=== PATIENT | female | born 1980 | race Caucasian/White ===

== ENCOUNTER → 2018-01-20 13:10 | Outpatient (CLI) | payer OTHER, SELFPAY ==
--- NOTE | 2018-01-21 20:05 | ONE_ITS ---
"DATE OF SERVICE: January 20, 2018 ASSESSMENT: Right thoracic lumbar muscle strain. PLAN: 1. MMI - Complete PT. Plan of care reviewed with patient who verbalized understanding and agreement. More than 50% of this visit spent in the planning and coordination of care. CHIEF COMPLAINT: Back pain. 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 Continued improvement noted. States that she is 80-90% preinjury status and is ready to be released to full duty. When discomfort develops it is relieved with stretching. Lizzy has one remaining PT appointment scheduled for next week. Voiced understanding of the importance of continuing her home exercise regimen throughout the lifespan. REVIEW OF SYSTEMS: Denies chest pain or palpitations. Denies shortness of breath or dyspnea. Denies headache or visual problems. Denies GI or complaints. PAST MEDICAL HISTORY: Depression. Obesity class 1 Asthma Headache Migraines Cholecystectomy 03/2017 Right wrist sprain, 07/2017 Back injury, 2007 MEDICATIONS: Sertraline 100 mg q.d. OTC Aleve. ALLERGIES: Amoxicillin - rash Latex - rash Penicillin - rash Shrimp - throat swelling SOCIAL: ETOH - none Tobacco - none Illegal drug use - none Exercise with employment. with child (SYLVAIN). Education - college for two years. OBJECTIVE GENERAL - 37-year-old white female. Alert, oriented x3, smiling. Gait remains nonantalgic. THORACIC/LUMBAR SPINE - Straight, rounded posture. No spinal or paraspinal musculature tenderness. Range of motion within normal limits."
== END ==
PROVIDERS: PCP Emergency Medicine; Visit Provider Nurse Practitioner Family
DX: M54.6 Pain in thoracic spine (principal); M62.830 Muscle spasm of back; S39.012D Strain of muscle, fascia and tendon of lower back, subsequent encounter
CPT/HCPCS: 99214

== ENCOUNTER 2019-11-24 02:57 | Outpatient (CLI) | payer OTHER, SELFPAY ==
[2019-11-24 11:04] LABS: ALT 29 U/L (14-59); AST 17 U/L (15-37); Albumin 3.8 g/dL (3.4-5.0); Alkaline Phosphatase 93 U/L (46-116); Anion Gap 7.8 mmol/L (3-11); BUN 8 mg/dL (7-18); Bilirubin, Total 0.4 mg/dL (0.2-1.0); CO2 28.2 mmol/L (21.0-32.0); CREATININE 0.85 mg/dL (0.55-1.02); Calcium 8.9 mg/dL (8.5-10.1); Calculated LDL 121 mg/dL (<100); Chloride 104 mmol/L (98-107); Cholesterol 180 mg/dL (<200); Glucose 94 mg/dL (74-106); HDL Cholesterol 39 mg/dL (40-60); Potassium 4.2 mmol/L (3.5-5.1); Sodium 140 mmol/L (136-145); TSH (W/Ref FT4) 2.54 uIU/mL (0.36-3.74); Total Protein 6.6 g/dL (6.4-8.2); Triglyceride 101 mg/dL (<150)
== END 2019-11-24 03:17 ==
PROVIDERS: PCP Emergency Medicine
DX: I10 Essential (primary) hypertension (principal); R00.2 Palpitations; R63.8 Other symptoms and signs concerning food and fluid intake; Z00.00 Encounter for general adult medical examination without abnormal findings; Z13.220 Encounter for screening for lipoid disorders; E03.9 Hypothyroidism, unspecified
CPT/HCPCS: 36415; 80053; 80061; 84443

== ENCOUNTER 2019-12-26 09:24 | Outpatient (CLI) | payer OTHER, SELFPAY ==
[2019-12-28 03:06] LABS: COVID-19 RT-PCR Result NEGATIVE (Negative)
== END 2019-12-26 09:44 ==
PROVIDERS: Physical Therapy Assistant; PCP Emergency Medicine; Visit Provider Surgery
DX: Z01.818 Encounter for other preprocedural examination (principal)
CPT/HCPCS: U0003

== ENCOUNTER 2019-12-29 08:09 | Day surgery (SDC) | payer OTHER, SELFPAY ==
[2019-12-29 08:22] VITALS: BP 143/90; PULSE 81; RESP 18; TEMP 36.3; O2SAT 97
[2019-12-29] MEDS: Lactated Ringers 1,000 ML 80 ML IV (08:45)
--- NOTE | 2019-12-29 09:09 | W.PM.ENDDOP ---
Date of service: 12/29/19 Time of Service: 09:09 Endoscopy Report DATE OF PROCEDURE: 12/29/19 PRE-OP DIAGNOSIS: dysphagia and epigastric pain POST-OP DIAGNOSIS: same (bile reflux gastritis ) PROCEDURE: EGD and bx SURGEON: Josefa Lazaro ANESTHESIA: MAC ESTIMATED BLOOD LOSS: 1 PATHOLOGY: other COMPLICATIONS: None DISPOSITION: same day PROCEDURE DESCRIPTION: After informed consent was obtained the patient was take to the procedure room and placed in a supine position. Monitors were applied and a time out was done. The patients name, date of , procedure type, allergies to medications and metal in their body was reviewed. A bite block was placed and the patient was sedated. Once sedated and comfortable the gastroscope was advanced through the oropharynx which was grossly normal into the esophagus. The proximal and mid-esophagus were nl. In the distal esophagus there was nl. There is no esophageal diverticulum varices esophagitis or masses. The scope was advanced into the stomach and through the pylorus into the 3rd portion of the duodenum. The duodenum was noted to be nl. Biopsies were done. All specimens are retrieved and no bleeding is noted the scope was retracted back into the stomach and biopsies were done to rule out H. pylori. There were no ulcers. There are no masses or polyps in the stomach. There is some mild gastritis especially along the greater curve than a striped fashion. She has definite bile reflux through the pylorus. The scope was retroflexed. The cardia and fundus were noted to be normal. There no a hiatal hernia noted. The scope was retracted back into the esophagus and biopsies were done of the GE junction to rule out White's. The Z line was regular. The GE junction was nl. The scope was removed and the patient was woken up and taken back to [facility] in stable condition.
--- NOTE | 2019-12-29 09:30 | STOM_PTH ---
PATIENT: Lizzy Sneed LOC: [facility] U#:[id number] AGE/SX: 39/F ROOM: RE12/29/[address]: Josefa Lazaro : 1980 BED: DIS: 12/29/2019 SPEC #: [id number] RECD: 12/29/19 12:47 STATUS: BUBBA REQ #: [id number] BEBO: 12/29/19 09:[address]: Josefa Lazaro DEPT: Surgical Specimen RECD BY: Erika Arthur ENTERED: 12/29/19 12:50 SP TYPE: STOMACH OTHR DR: Hussein Deluna DO Tissues: 1 - BIOPSY BOWEL 2 - STOMACH BIOPSY 3 - STOMACH BIOPSY 4 - ESOPHAGUS BIOPSY 5 - ESOPHAGUS BIOPSY Procedures: GROSS AND MICRO LEVEL 4 IMMUNOPEROXIDASE STAIN Comments: [id number]
--- NOTE | 2019-12-29 09:53 | W.PM.DSUDISC ---
Discharge Plan Disposition Patient Disposition: HOME Condition: Good Discharge Details Reason For Visit: EGD Attending Provider: Josefa Lazaro Primary Care Provider: Hussein Deluna Home Meds and New Rx's Prescriptions: New sucralfate [Carafate] 1 gram tablet 1 gm PO BID Qty: 60 RF: 12 Continued sertraline 25 mg tablet 25 mg PO DAILY Qty: 60 RF: 1 naproxen sodium [Aleve] 220 MG capsule 220 mg PO PRN RF: 0 sertraline [Zoloft] 100 mg tablet 100 mg PO DAILY Qty: 90 RF: 4 Discontinued omeprazole 40 mg capsule,delayed release(DR/EC) 40 mg PO DAILY Qty: 90 RF: 1 Discharge Instructions Additional Instructions: Findings:bile reflux gastritis stop omeprazol and start carafate gargle w/ salt water if have sore throat. Follow up:in 3-4 wks Please call if you develop: fevers >101.5 Nausea or Vomiting Abdominal pain that is not transient DAY SURGERY UNIT POST COLONOSCOPY INSTRUCTIONS 1. Because there will be medication in your system for the next 24 hours, you may feel a little sleepy. Your coordination will be affected. Therefore: a. Do not drive or operate dangerous equipment for 24 hours. b. Do not drink alcohol beverages for 24 hours (not even beer). c. Plan to go home and rest for the day. 2. Generally there are no restrictions on your activity after a day or so has gone by, but you may feel a bit fatigued for a few days. 3 After you arrive home you may have a light meal and return to a normal diet as you can tolerate it without feeling sick to your stomach. 4. After surgery, you may feel pain or discomfort. This should be only transient, but if it persists please contact your doctor. 5. If there are any questions regarding the findings of your procedure, please feel free to contact your doctor. 6. If you are unable to contact your doctor with a problem, contact the hospital at [phone]. 7. Continue all your regular medications unless directed otherwise. I understand the above instructions and have no questions. Signature of Patient or Responsible Adult Escort Date/Time Name of Responsible Adult Escort Signature of Nurse Date/Time Activity:: no lifting over 24hrs or strenuous activity x 24 hrs Diet:: small lt meals x24hrs. May have sore throat x 24hrs. Garle w/ salt water as needed for sore throat DS: Diagnosis Discharge Diagnosis (1) Gastroesophageal reflux disease: Status: Chronic (2) Bile reflux gastritis: Status: Acute
[2019-12-29 10:12] VITALS: BP 119/79; PULSE 71; RESP 17; TEMP 36.1; O2SAT 97
== END 2019-12-29 10:25 | disposition home or self-care (01) ==
PROVIDERS: PCP Emergency Medicine; Visit Provider Surgery
PROC: 0DJ68ZZ Inspection of Stomach, Via Natural or Artificial Opening Endoscopic (ICD-10-PCS; CPT 43235; principal; 2019-12-29 09:15)
DX: R13.10 Dysphagia, unspecified (principal); R10.13 Epigastric pain; K29.60 Other gastritis without bleeding; K21.9 Gastro-esophageal reflux disease without esophagitis
CPT/HCPCS: 43239; 81025; 88305; 88361

== ENCOUNTER 2020-09-27 10:13 | Outpatient (REF) | payer SELFPAY ==
--- NOTE | 2020-09-27 10:00 | PAPFT_PTH ---
PATIENT: Lizzy Sneed LOC: [facility] U#:[id number] AGE/SX: 40/F ROOM: RE09/27/[address]: HECTOR Schmitz : 1980 BED: DIS: 09/27/2020 SPEC #: [id number] RECD: 09/27/20 12:53 STATUS: BUBBA REQ #: [id number] BEBO: 09/27/20 10:[address]: Shyanne Bran DEPT: [facility] Cytology RECD BY: Erika Arthur ENTERED: 09/27/20 12:53 SP TYPE: PAPFT OTHR DR: Audra Kay APRN Tissues: 1 - CX/ENDOCX FOR PAP SMEARS Procedures: PAP THIN PREP/UVM Screening HPV DNA PROBE Comments: [id number]
== END 2020-09-27 10:14 | disposition home or self-care (01) ==
LOC: LBN 10:13
PROVIDERS: Visit Provider Nurse Practitioner Family
DX: Z12.4 Encounter for screening for malignant neoplasm of cervix (principal); Z11.51 Encounter for screening for human papillomavirus (HPV)
CPT/HCPCS: 88142; 87624

== ENCOUNTER 2021-01-08 03:25 | Outpatient (CLI) | payer OTHER, SELFPAY ==
[2021-01-08 09:54] LABS: ALT 27 U/L (14-59); AST 15 U/L (15-37); Alkaline Phosphatase 88 U/L (46-116); Anion Gap 9.1 mmol/L (3-11); BUN 7 mg/dL (7-18); Bilirubin, Total 0.4 mg/dL (0.2-1.0); CO2 26.9 mmol/L (21.0-32.0); CREATININE 0.8 mg/dL (0.55-1.02); Chloride 104 mmol/L (98-107); Glucose 100 mg/dL (74-106); Potassium 3.9 mmol/L (3.5-5.1); Sodium 140 mmol/L (136-145)
== END 2021-01-08 03:26 | disposition home or self-care (01) ==
LOC: LBO 03:25
DX: Z00.00 Encounter for general adult medical examination without abnormal findings (principal); R63.8 Other symptoms and signs concerning food and fluid intake
CPT/HCPCS: 36415; 80053

== ENCOUNTER 2021-01-25 00:24 | Outpatient (CLI) | payer SELFPAY ==
--- NOTE | 2021-01-25 11:00 | NS.NUTBLAN_ITS ---
Lizzy was referred to Medical Nutrition Therapy for weight management. 5'8 230 lbs, BMI 35. Desired Weight: 180-190 lbs. Lizzy reports gaining over 50 lbs once she started having children 10 years ago. She also reports difficulty controlled her binge eating since staying home with three kids when covid pandemic occurred. She has a strong family hx of addiction but does not drink or smoke. She reports using sugar to sooth herself in times of stress. Food record indicates erratic meal times, reliance on high sugar foods and snacks and includes very little protien in her diet. Lizzy reports reoccurring digestion issues since having gall bladder taken out a couple years ago. Since then she has been unable to tolerate meat, chicken and most dairy products. She does not eat seafood/fish as allergic. She reports anxiety/depression and difficulty sleeping. Meds include antidepressant. Session today discussed importance of following a lower carb, higher protein meal time with scheduled meal times to avoid hunger that can lead to bingeing. Educated Lizzy on how to follow [id number] kcal meal plan, 80-100 g carbohydrates, 60-70 g protein, 45-55 g fat. Encouraged two daily walks daily (10 am, 2 pm) during peak binging times. Goal: 5-10 lbs loss per month with goal weight of 180-190 lbs. Encouraged Lizzy to speak to PCP re: difficulty staying asleep, may be related to anxiety/depression. Plan: follow up meeting 03/01/21 at 11 am
== END 2021-01-25 00:25 | disposition home or self-care (01) ==
LOC: DS 00:25
PROVIDERS: Visit Provider Dietitian, Registered
DX: E66.3 Overweight (principal); Z68.35 Body mass index [BMI] 35.0-35.9, adult; Z71.3 Dietary counseling and surveillance
CPT/HCPCS: 97802

== ENCOUNTER 2022-09-10 01:27 | Outpatient (CLI) | payer SELFPAY ==
--- NOTE | 2022-09-10 06:45 | DI.MAMMO_ITS ---
Exam(s) MAMMO SCREENING EXAM: MAMMO SCREENING CLINICAL HISTORY: screening,z12.39,baseline. TECHNIQUE: Bilateral full field digital CC and MLO mammographic images were obtained with 3D tomosyn thesis and utilizing computer aided detection (CAD). COMPARISON: None. This is a baseline mammogram on this 42-year-old patient. FINDINGS: There are no CAD designations. Fibroglandular tissue pattern is fatty. There are no spiculated masses nor malignant appearing microcalcification groups. Two small benign-appearing nodules in the right breast are most probably benign intramammary lymph no kinza. There is no significant architectural distortion nor skin thickening-retraction. IMPRESSION: No radiographic evidence of malignancy. Benign findings. BI-RADS Category 2 - Benign Findings Breast Density - Category A - Almost entirely fatty Breast density Category C or D implies that the patient has dense breast tissue. Dense breast tissue can make it harder to find cancer on a mammogram. Dense breast tissue is also associated with an incr eased risk of breast cancer. This information about the result of the mammogram report was provided to the patient to raise their awareness. Use this report when you speak with the patient about their risks for breast cancer, which includes their family history. At that time, you may recommend additional screening tests (Ultrasoun d or MRI) as these tests may add significant information. A negative radiographic report should not delay biopsy if a dominant or clinically suspicious mass is present. Up to ten percent of cancers are not identified on mammography. A negative report may reinforce clinical impression. Adenosis and dense breasts may obscure an underlying neoplasm. False positive reports average 6 to 10%. Patient will receive a letter notifying them of these results.
== END 2022-09-10 01:47 ==
LOC: DI 01:30
PROVIDERS: PCP Nurse Practitioner Family; Visit Provider Nurse Practitioner Family
DX: Z12.31 Encounter for screening mammogram for malignant neoplasm of breast (principal)
CPT/HCPCS: 77063; 77067

== ENCOUNTER 2024-12-13 03:40 | Outpatient (CLI) | payer SELFPAY ==
[2024-12-13 09:56] LABS: ALT 33 U/L (14-59); AST 15 U/L (15-37); Albumin 3.7 g/dL (3.4-5.0); Alkaline Phosphatase 103 U/L (46-116); Anion Gap 9.9 mmol/L (3-11); BUN 8 mg/dL (7-18); Bilirubin, Total 0.3 mg/dL (0.2-1.0); CO2 29.1 mmol/L (21.0-32.0); Calcium 9.2 mg/dL (8.5-10.1); Calculated LDL 150 mg/dL (<100); Chloride 101 mmol/L (98-107); Cholesterol 219 mg/dL (<200); Estimated GFR 109.98 (mL/min/1.73m2); Glucose 97 mg/dL (74-106); HDL Cholesterol 46 mg/dL (>or=50); Potassium 4.0 mmol/L (3.5-5.1); Sodium 140 mmol/L (136-145); Total Protein 7.7 g/dL (6.4-8.2); Triglyceride 116 mg/dL (<150)
[2024-12-13 19:12] LABS: HIV-1/2 Ag & Ab Screen Negative (Negative)
[2024-12-13 19:13] LABS: Hepatitis C Ab w Rflx HCV PCR Negative (Negative)
[2024-12-13 22:06] LABS: HBs Antibody, Quant 191.9 mIU/mL (See Note); Hepatitis B Surface Antigen Negative (Negative)
== END 2024-12-13 03:41 | disposition home or self-care (01) ==
LOC: LBO 03:40
PROVIDERS: PCP Nurse Practitioner Family; Visit Provider Nurse Practitioner Family
DX: Z11.59 Encounter for screening for other viral diseases (principal); Z13.220 Encounter for screening for lipoid disorders; Z11.4 Encounter for screening for human immunodeficiency virus [HIV]
CPT/HCPCS: 36415; 80053; 80061; 86704; 86706; 86803; 87340; 87389

== ENCOUNTER 2024-12-19 02:11 | Outpatient (CLI) | payer SELFPAY ==
[2024-12-19] MEDS: Inhaler, Assist Device 1 EACH MC (11:35)
[2024-12-19] MEDS: Methacholine 100 MG VIAL IH (11:35)
[2024-12-19] MEDS: Albuterol HFA 18 GM 200 PUFF INH IH (11:36)
--- NOTE | 2024-12-20 09:06 | W.PFT ---
Date of service: 12/19/24 Time of Service: 10:04 Pulmonary Function Test Result Indications: Dyspnea Impression Interpretation: 1. Good patient effort was noted. ATS standards for reproducibility were met. 2. FEV1:FVC ratio was mildly reduced relative to predicted, indicating mild obstruction or a normal variant. 3. Following the administration of a bronchodilator there was not a significant response 4. At 1.0 mg/mL of methacholine there was a 20% fall in FEV1. At 2.0 mg/mL of methacholine, there was a 32% fall in FEV1 Impression: - positive methacholine challenge testing
== END 2024-12-19 02:12 | disposition home or self-care (01) ==
LOC: RT 02:11
PROVIDERS: PCP Nurse Practitioner Family; Visit Provider Internal Medicine Pulmonary Disease
DX: Z87.09 Personal history of other diseases of the respiratory system (principal); R06.09 Other forms of dyspnea
CPT/HCPCS: 94070; 95070; J7674

== ENCOUNTER 2024-12-29 02:06 | Outpatient (CLI) | payer SELFPAY ==
--- NOTE | 2024-12-29 06:30 | DI.US_ITS ---
Exam(s) US ABDOMEN LIMITED EXAM: US ABDOMEN LIMITED CLINICAL HISTORY: RUQ pain, hepatomegaly, R16.0 TECHNIQUE: Ultrasound abdomen performed using standard protocol. COMPARISON: zCT ABD PELVIS WITH CONTRAST from 03/04/2017 FINDINGS: There is no ascites evident. LIVER: There are no hepatic lesions evident nor dilatation of intrahepatic ducts. GALLBLADDER/BILIARY: The gallbladder is surgically absent. The common hepatic duct isnot dilated, measuring 4mm at the level of lara hepatis. PANCREAS: There is no evidence of pancreatic mass nor dilatation of the pancreatic duct. RIGHT KIDNEY:No evidence of solid mass, calculus, nor hydronephrosis. No cortical cysts evident. IMPRESSION: 1. Compared to the prior CT scan of 2017 there has been interval cholecystectomy. The gallbladder surgically absent and there is no dilatation of the biliary tree. There is no abnormal fluid collection in the gallbladder fossa. 2. No other significant ultrasound findings in the right upper quadrant. 3. There is no ascites. DATA REPOSITORY:
--- NOTE | 2024-12-29 06:30 | DI.MAMMO_ITS ---
Exam(s) MAMMO SCREENING EXAM: MAMMO SCREENING CLINICAL HISTORY: screening, Z12.39. TECHNIQUE: Bilateral full field digital CC and MLO mammographic images were obtained with 3D tomosynthesis and utilizing computer aided detection (CAD). COMPARISON: Prior baseline mammogram of August 2022 was reviewed. FINDINGS: There has been no significant change in the appearance and distribution of the fibroglandular tissue. No CAD designations. There are no new spiculated masses nor malignant appearing microcalcification groups. Two small benign-appearing nodules in the right breast are unchanged from baseline mammogram and probably benign intramammary lymph nodes. There is no significant architectural distortion nor skin thickening-retraction. IMPRESSION: No radiographic evidence of malignancy. BI-RADS Category 1 - Negative Breast Density - Category A - The breast are almost entirely fatty. Breast density Category C or D implies that the patient has dense breast tissue. Dense breast tissue can make it harder to find cancer on a mammogram. Dense breast tissue is also associated with an increased risk of breast cancer. This information about the result of the mammogram report was provided to the patient to raise their awareness. Use this report when you speak with the patient about their risks for breast cancer, which includes their family history. At that time, you may recommend additional screening tests (Ultrasound or MRI) as these tests may add significant information. A negative radiographic report should not delay biopsy if a dominant or clinically suspicious mass is present. Up to ten percent of cancers are not identified on mammography. A negative report may reinforce clinical impression. Adenosis and dense breasts may obscure an underlying neoplasm. False positive reports average 6 to 10%. Patient will receive a letter notifying them of these results.
== END 2024-12-29 02:26 ==
LOC: DI 02:06
PROVIDERS: PCP Nurse Practitioner Family; Visit Provider Nurse Practitioner Family
DX: Z12.31 Encounter for screening mammogram for malignant neoplasm of breast (principal); R16.0 Hepatomegaly, not elsewhere classified; R92.313 Mammographic fatty tissue density, bilateral breasts
CPT/HCPCS: 77063; 77067; 76705

== ENCOUNTER 2025-01-09 04:34 | Outpatient (CLI) | payer SELFPAY ==
[2025-01-09 12:25] LABS: Abs Immature Grans 0.02 10^3/uL (0.0-0.06); HCT 35.9 % (36.0-46.0); HGB 11.2 g/dL (11.2-15.7); Immature Grans % 0.3 %; MCH 25.5 pg (27.0-33.0); MCHC 31.2 % (32.0-36.0); MCV 82 fL (80-95); MPV 9.5 fL (8.0-11.0); Platelet Count 291 10^3/uL (130-400); RBC 4.40 10^6/uL (3.93-5.22); RDW 13.8 % (11.7-14.6); RDW-SD 41.0 fL; WBC 7.35 10^3/uL (4.4-10.8)
== END 2025-01-09 04:35 | disposition home or self-care (01) ==
LOC: LBO 04:34
PROVIDERS: PCP Nurse Practitioner Family; Visit Provider Obstetrics & Gynecology
DX: Z01.818 Encounter for other preprocedural examination (principal)
CPT/HCPCS: 36415; 86850; 86900; 86901; 85025

== ENCOUNTER 2025-01-11 09:51 | Day surgery (SDC) | payer SELFPAY ==
[2025-01-11] VITALS (11 sets, daily range): BP systolic 108–135; BP diastolic 74–94; PULSE 63–78; RESP 12–17; TEMP 36.1–36.6; O2SAT 96–99; BMI 34.3
[2025-01-11] MEDS: Lactated Ringers 1,000 ML 125 ML IV (10:21)
--- NOTE | 2025-01-11 11:02 | W.ANESPRE ---
General Info Date of Service Date Performed: 01/11/25 Height: 5 ft 9 in Weight: 105.5 kg Body Mass Index (BMI): 34.3 Surgical Procedure: Operation Date: 01/11/25 11:10 Proposed Procedure Side Surgeon p Dilation & Curettage with Hysteroscopy Kalli You DO Meds Allergies and Home Medications Allergies Allergy/AdvReac Type Severity Reaction Status Date / Time amoxicillin Allergy Unknown RASH Verified 01/11/25 10:11 latex Allergy Unknown IRRITATION, Verified 01/11/25 10:11 RASH Penicillins Allergy Unknown RASH ( Verified 01/11/25 10:11 WHEN YOUNGER) SHRIMP Allergy Severe THROAT Uncoded 01/11/25 10:11 SWELLS Home Medication ?Medication ?Instructions ?Recorded naproxen sodium 220 mg capsule 220 mg PO PRN 01/05/18 (Aleve) albuterol sulfate 90 mcg/actuation 2 inh inhalation Q6H PRN shortness 12/09/24 aerosol inhaler of breath or wheezing #18 grams sertraline 100 mg tablet (Zoloft) 100 mg PO DAILY #90 tab-caps 12/09/24 sertraline 25 mg tablet 25 mg PO DAILY #90 tabs 12/09/24 sucralfate 1 gram tablet See Rx Instructions .Route 12/09/24 .COMPLEX #60 tabs fluticasone propionate 110 2 puff inhalation BID #12 grams 12/20/24 mcg/actuation HFA aerosol inhaler Current Visit Medications: Current Medications Generic Name Dose Route Start Last Admin Trade Name Freq PRN Reason Stop Dose Admin Ringer's Solution 1,000 mls @ 125 mls/hr 01/11/25 06:00 01/11/25 10:21 IV 01/11/25 23:59 125 mls/hr INFUSION MAGDY Administration IV Miscellaneous Supplies 1 each 01/11/25 06:00 Iv Access IV 01/11/25 23:59 DIRECTED MAGDY Sodium Chloride 0 ml 01/11/25 06:00 Normal Saline Flush 10 Ml Syr IV 01/11/25 23:59 PRN PRN Sodium Chloride 0 ml 01/11/25 06:00 Normal Saline 10 Ml Vial IJ 01/11/25 23:59 DIRECTED PRN Sterile Water 0 ml 01/11/25 06:00 Water,Injection,Sterile 10 Ml Vial IJ 01/11/25 23:59 DIRECTED PRN PFSH Active Problems Active Problems: Problem Status Onset Code Abnormal ultrasound of endometrium Acute R93.5 Right ovarian cyst Acute N83.201 DUB (dysfunctional uterine bleeding) Acute N93.8 Hepatomegaly Acute R16.0 History of asthma Acute Z87.09 Right upper quadrant pain Acute R10.11 Encounter for annual physical exam Acute Z00.00 Bile reflux gastritis Acute K29.60 Screening cholesterol level Acute Z13.220 Increased body mass index (BMI) Acute R63.8 Medical History Medical History Gastroesophageal reflux disease Palpitations Biliary colic Heart burn Migraine Surgical History Surgical History Cholecystectomy (03/25/17) Tobacco Smoking/Tobacco Use Status: Never Passive smoking exposure: Yes Second hand exposure: No Alcohol Alcohol Intake: former Substance Use Substance use: Never Substance use type: does not use Prental History History 3 Para 3 Hx # Term Pregnancies Multiple births Hx # Pregnancies Ectopic pregnancies AB induced Hx Number of Living Children 3 AB spontaneous Past Pregnancies Del. Date GA/Weeks # Preg Succ Route Wgt Sex Labor Lgth Anesthesia Location [facility] 11/09/10 30 Yes vaginal 3713.788 g Female [facility] 01/04/13 32 Yes vaginal 4876.118 g Female 07/10/15 34 Yes vaginal 4904.467 g Female Delivery Date: 01/04/13 Last Updated by: Julienne Salazar RN [facility] Delivery Date: 07/10/15 Last Updated by: Julienne Salazar RN [facility] Vital Signs and Lab Results Vital Signs Most Recent Vital Signs in EMR: Most Recent Vital Signs Temp Pulse Resp BP Pulse Ox 36.6 C 75 16 123/87 96 01/11/25 10:07 01/11/25 10:07 01/11/25 10:07 01/11/25 10:07 01/11/25 10:07 Point of Care Results Point of Care Results: POC- Test(urine) Negative 01/11/25 10:50 Lab Results Blood Type / Crossmatch: Antibody Screen NEGATIVE 01/09/25 Complete Blood Count: WBC, (4.4-10.8) 7.35 10^3/uL 01/09/25, 12:12 RBC, (3.93-5.22) 4.40 10^6/uL 01/09/25, 12:12 Hgb, (11.2-15.7) 11.2 g/dL 01/09/25, 12:12 Hct, (36.0-46.0) 35.9 % L 01/09/25, 12:12 Plt Count, (130-400) 291 10^3/uL 01/09/25, 12:12 Complete Metabolic Panel: Sodium, (136-145) 140 mmol/L 12/13/24, 08:20 Potassium, (3.5-5.1) 4.0 mmol/L 12/13/24, 08:20 Chloride, (98-107) 101 mmol/L 12/13/24, 08:20 Carbon Dioxide, (21.0-32.0) 29.1 mmol/L 12/13/24, 08:20 BUN, (7-18) 8 mg/dL 12/13/24, 08:20 Creatinine, (0.55-1.02) 0.7 mg/dL 12/13/24, 08:20 Est GFR (CKD-EPI 2020), (mL/min/1.73m2) 109.98 12/13/24, 08:20 Calcium, (8.5-10.1) 9.2 mg/dL 12/13/24, 08:20 Albumin, (3.4-5.0) 3.7 g/dL 12/13/24, 08:20 Glucose, (74-106) 97 mg/dL 12/13/24, 08:20 Liver Function Panel: ALT, (14-59) 33 U/L 12/13/24, 08:20 AST, (15-37) 15 U/L 12/13/24, 08:20 Infectious Disease: HIV 1&2 Ag/Ab, 4th Gen, (Negative) Negative 12/13/24, 08:20 Hep Bs Antigen, (Negative) Negative 12/13/24, 08:20 Hepatitis C Antibody, (Negative) Negative 12/13/24, 08:20 Panel: Urine HCG, Qual Negative 01/03/25, 14:24 Anesthesia Assessment and Plan Anesthesia History Personal History: No History of Anesthesia Complications Family History: No Family History of Anesthesia Complications Exercise Tolerance Exercise Tolerance: Metabolic Equivalents>4 Pertinent Negatives Pertinent Negatives: No Symptoms of GERD (RX with rare breakthrough) Cardiac & Pulmonary Exam Cardiac Exam: Normal S1/S2 Heart Sounds Pulmonary Exam: Clear Bilateral Breath Sounds Implantable Cardiac Device Does patient have a Pacemaker or an ICD?: No Airway Exam Known Difficult Airway: No Mallampati Class: 2 Mouth Opening: Normal (> 3cm) Thyromental Distance: Greater than 3 cm Neck Range of Motion: Full ROM Neck Circumference: Normal Teeth Condition: Normal Dentition ASA Classification ASA Score: ASA 2 Emergency Case?: No NPO Status NPO Status: NPO Clears >2 hours, Solids >8 hours Status Status: Negative HCG Anesthesia Plan Resuscitation Status: Full Code Anesthesia Technique: General Anesthesia Airway Planned: LMA Monitors Used: Standard Monitors and SedLine
--- NOTE | 2025-01-11 11:42 | ENDO_PTH ---
PATIENT: Lizzy Sneed LOC: [facility] U#:[id number] AGE/SX: 44/F ROOM: RE01/11/[address]: Kalli You DO : 1980 BED: DIS: 01/11/2025 SPEC #: [id number] RECD: 01/11/25 13:03 STATUS: BUBBA RE #: [id number] BEBO: 01/11/25 11:[address]: Kalli You DEPT: Surgical Specimen RECD BY: Erika Arthur ENTERED: 01/11/25 13:06 SP TYPE: Endo OTHR DR: Osmani Leija DNP Tissues: 1 - ENDOCERVICAL BX/CURRETTE 2 - ENDOMETRIUM BX/CURRETTE Procedures: GROSS AND MICRO LEVEL 4 Comments: [id number]
[2025-01-11] MEDS: Silver Nitrate Stick 1 EACH (11:45)
--- NOTE | 2025-01-11 11:54 | W.PM.OP ---
Operative Note Operative Note PRE-OP DIAGNOSIS: Dysfunctional uterine bleeding, enlarged uterus, ultrasound abnormality POST-OP DIAGNOSIS: same PROCEDURE: Hysteroscopy, dilation and curettage SURGEON: Kalli You ANESTHESIA TYPE: General LMA/ETT Refer to Anesthesia Record ESTIMATED BLOOD LOSS: 50 PATHOLOGY: other (1. Endocervical curettage 2. Endometrial curettage) Patient was transported to: PACU Patient's condition: stable Indications: Ongoing heavy menstrual bleeding. Enlarged uterus. Cystic structure on ultrasound in the endometrial cavity. Findings: Bulky enlarged uterus, approximately 12 weeks size. Patulous cervix. Gaping introitus. [place] endometrium without discrete irregularity Procedure Description: After full informed consent was obtained, patient was taken the operating suite with an IV running. She was placed in dorsal supine position and general anesthesia administered via LMA. At this point, she was placed in a modified dorsolithotomy position in yellowfin stirrups and prepped and draped in the usual sterile fashion. Exam under anesthesia revealed enlarged uterus approximately 12 weeks size which was anteverted, and anteflexed. Cervix was bulky though smooth and regular. There was no appreciable adnexal mass though limited by body habitus. Patient had pneumatic compression stockings for DVT prophylaxis. She had no antibiotic prophylaxis necessary. a timeout was held. At this point speculum was inserted into the vaginal vault. The uterus was well at the apex of the vagina, and flexed anteriorly. A single-tooth tenaculum was used to grasp the anterior lip of the cervix and cervical os dilated to the point that a 4 mm hysteroscope could be Passed without difficulty. Hysteroscope was passed into the uterine cavity and the uterus sounded to approximately 12 cm. The uterine cavity appeared plush without discrete mass, lesion, or polypoid structure. No cystic structure was seen as it was on ultrasound. At this point, with a fluid deficit of 65 cc of normal saline, the hysteroscope portion of the procedure was terminated. Fractional dilation and curettage was performed with collection of cells from the endocervix, followed by the endometrium. There was 1 area of puncture site of the cervix which was not hemostatic which was chemically cauterized with silver nitrate to achieve hemostasis. At this point the speculum was removed. The patient was returned to the dorsal supine position and awoke from anesthesia without difficulty. She was taken to the postanesthesia care unit in stable condition. EBL: 50 mL Fluids: Crystalloid per anesthesia Complications: None apparent Pathology: 1. Endocervical curettings 2. Endometrial curettings Findings: Bulky enlarged uterus approximately 12 weeks size with thickened irregular endometrial lining without discrete polyps or masses noted. As of note, if hysterectomy is warranted, laparoscopic approach could be attempted, though with size of the uterus may be somewhat challenging. Date of Procedure: 01/11/25
--- NOTE | 2025-01-11 13:42 | W.ANESPOSTOP ---
Postoperative Evaluation Date, Time and Location Date Performed: 01/11/25 Time Performed: 13:42 Patient Location: Day Surgery Unit Vital Signs Most Recent Imported Vital Signs: Most Recent Vital Signs Temp Pulse Resp BP Pulse Ox 36.6 C 67 17 135/89 96 01/11/25 13:00 01/11/25 13:00 01/11/25 13:00 01/11/25 13:00 01/11/25 13:00 Pain Score Most Recent Pain Score: Most Recent Pain Score Pain Level 0 01/11/25 13:00 Assessment Mental Status: Awake (Alert & Oriented to Patient Baseline) Airway and Respiratory Function: Patent airway with normal (patient baseline) respiratory exam Cardiovascular Function: Hemodynamically Stable Hydration Status: Adequately Hydrated Nausea & Vomiting: No Nausea or Vomiting Pain: Pt. Denies Any Pain Peripheral Nerve Block: Patient did not receive a nerve block
== END 2025-01-11 13:38 | disposition home or self-care (01) ==
PROVIDERS: PCP Nurse Practitioner Family; Visit Provider Obstetrics & Gynecology
PROC: 0UDB8ZZ Extraction of Endometrium, Via Natural or Artificial Opening Endoscopic (ICD-10-PCS; CPT 58558; principal; 2025-01-11 11:00)
DX: N93.8 Other specified abnormal uterine and vaginal bleeding (principal); N85.2 Hypertrophy of uterus; R93.5 Abnormal findings on diagnostic imaging of other abdominal regions, including retroperitoneum
CPT/HCPCS: 58558; 81025; 88305; J0131; J1100; J1885; J2003; J2405; J2704